=== PATIENT | male | born 1960 | race Caucasian/White ===

== ENCOUNTER 2021-10-01 08:30 | Day surgery (SDC) | payer OTHER, SELFPAY ==
[2021-10-01] VITALS (8 sets, daily range): BP systolic 124–181; BP diastolic 79–100; PULSE 51–70; RESP 16; TEMP 36–36.3; O2SAT 96–100; BMI 48.6
[2021-10-01] MEDS: Lactated Ringers 1,000 ML 15 ML IV (09:35)
--- NOTE | 2021-10-01 10:10 | RAD_ITS ---
INDICATION: CAUDAL EPIDURAL INJECTION EXAMINATION/TECHNIQUE: X-RAY - IR Fluoro Guide Injection Spine COMPARISON: None. FLUOROSCOPY TIME: 9.7 seconds. FLUOROSCOPY DOSE: 13.77 mGy FINDINGS: 2 spot fluoroscopic images were obtained intraoperatively. Images demonstrate needle placement for cortical epidural injection. No radiologist was present for the procedure, please refer to operative report for details. RAD/Fluor Guidance for Spine Inj IMPRESSION: Please refer to operative report for details. Electronically Signed: Jim Suarez MD at 14:21 EDT ,
[2021-10-01] MEDS: Lidocaine 1% (2ml-nursery) 2 ML VIAL (10:14)
[2021-10-01] MEDS: MethylPREDNISolone Acetate 80 MG/ML Vial (10:15)
[2021-10-01] MEDS: 0.9% Normal Saline (Pres. free 10 ML Vial (10:15)
[2021-10-01] MEDS: Bupivacaine 0.25% 30 ML Vial (10:15)
--- NOTE | 2021-10-01 12:16 | OP.PCM_ITS ---
Report of Operation Date of Procedure: 10/01/21 Pre-Operative Diagnosis: Lumbosacral radiculopathy, lumbosacral degenerative di sc disease, lumbosacral spinal stenosis Post-Operative Diagnosis: Lumbosacral radiculopathy, lumbosacral degenerative disc disease, lumbosacral spinal stenosis Surgery/Procedure Performed:: Caudal epidural steroid injection under fluoroscopic guidance Type of Anesthesia: MAC Estimated Blood Loss (mL): Minimal Description of Procedure: DESCRIPTION OF PROCEDURE: History and physical of today was reviewed. Risks and benefits of the procedure were explained. The patient understood and agreed to proceed. Informed consent was obtained. IV inserted per routine protocol. The patient was taken to the operating room and placed in the prone position with a pillow positioned underneath the abdomen. The lower back and tailbone area was prepped and draped in a sterile fashion using iodine x3. Under fluoroscopy guidance on a lateral view, the caudal space was identified. The skin and subcutaneous tissue was anesthetized with approximately 3 mL of 1% lidocaine using a 25-gauge regular needle. Under direct visualization with fluoroscopy, using a 22-gauge 3-1/2-inch spinal needle, the needle was advanced via the skin through the sacral hiatus. The tip of the needle was passed through the sacrococcygeal ligament and advanced to approximately S4 area. After negative aspiration of blood or CSF, a total of 3 mL of contrast was injected to confirm correct placement of the needle as well as cephalad spread. The spread was followed to approximately L5 area. After confirmation on AP as well as lateral view and repeated negative aspiration, a total of 15 mL of preservative-free 0.125% Marcaine with 80 mg of Depo-Medrol was injected easily. The needle was then removed intact. The patient experienced no sign or symptoms of intrathecal or intravascular injection. The patient experienced no paresthesia. The procedure was completed without any apparent difficulty or any complications. The patient appeared to tolerate it well. ASSESSMENT AND PLAN: This is a 60-year-old male with lumbosacral radiculopathy, lumbosacral degenerative disc disease, lumbosacral spinal stenosis status post caudal epidural steroid injection, patient will continue his current medications, patient will follow in approximately 2 weeks for reevaluation. Complications None
== END 2021-10-01 11:27 | disposition home or self-care (01) ==
LOC: SDC 08:49 → AC 09:01
PROVIDERS: Referring Provider Anesthesiology Pain Medicine; Visit Provider Anesthesiology Pain Medicine
PROC: 3E0S3BZ Introduction of Anesthetic Agent into Epidural Space, Percutaneous Approach (ICD-10-PCS; CPT 62282; principal; 2021-10-01 10:05)
DX: M51.17 Intervertebral disc disorders with radiculopathy, lumbosacral region (principal); M48.07 Spinal stenosis, lumbosacral region; I10 Essential (primary) hypertension; Z79.899 Other long term (current) drug therapy; M10.9 Gout, unspecified
CPT/HCPCS: 62323; 64483; 77003; J7120; J3490

== ENCOUNTER 2022-03-18 09:26 | Day surgery (SDC) | payer OTHER, SELFPAY ==
[2022-03-18] MEDS: Lactated Ringers 1,000 ML 15 ML IV (10:05)
[2022-03-18 10:17] VITALS: BP 162/97; PULSE 75; RESP 16; TEMP 36.6; O2SAT 97; BMI 48.9
[2022-03-18 10:19] LABS: Erythrocyte Sedimentation Rate 25 mm/hr (0-20)
--- NOTE | 2022-03-18 10:25 | RAD_ITS ---
PROCEDURE: Caudal epidural. DATE OF EXAMINATION: 03/18/2022. INDICATION: Male, 61 years old. Chronic low back pain. FLUOROSCOPY TIME (if supplied): (10 seconds) minutes/seconds. 2 images were submitted. RAD/Fluor Guidance for Spine Inj IMPRESSION: Intraoperative imaging provided for caudal epidural. Electronically Signed: Gurjit Alas MD at 9:36 EDT ,
[2022-03-18 10:49] LABS: Rheumatoid Factor < 10.0 IU/mL (<15)
[2022-03-18] MEDS: 0.9% Normal Saline (Pres. free 10 ML Vial (11:14)
[2022-03-18] MEDS: Lidocaine 1% (30 ml sdv) 30 ML Vial (11:14)
[2022-03-18] MEDS: MethylPREDNISolone Acetate 40 MG/ML Vial IM ×2 (11:14)
--- NOTE | 2022-03-18 11:19 | OP.PCM_ITS ---
Report of Operation Date of Procedure: 03/18/22 Pre-Operative Diagnosis: Lumbosacral radiculopathy, lumbosacral degenerative di sc disease, lumbosacral spinal stenosis Post-Operative Diagnosis: Lumbosacral radiculopathy, lumbosacral degenerative disc disease, lumbosacral spinal stenosis Surgery/Procedure Performed:: Caudal epidural steroid injection under fluoroscopic guidance Type of Anesthesia: MAC Estimated Blood Loss (mL): Minimal Description of Procedure: DESCRIPTION OF PROCEDURE: History and physical of today was reviewed. Risks and benefits of the procedure were explained. The patient understood and agreed to proceed. Informed consent was obtained. IV inserted per routine protocol. The patient was taken to the operating room and placed in the prone position with a pillow positioned underneath the abdomen. The lower back and tailbone area was prepped and draped in a sterile fashion using iodine x3. Under fluoroscopy guidance on a lateral view, the caudal space was identified. The skin and subcutaneous tissue was anesthetized with approximately 3 mL of 1% lidocaine using a 25-gauge regular needle. Under direct visualization with fluoroscopy, using a 22-gauge 3-1/2-inch spinal needle, the needle was advanced via the skin through the sacral hiatus. The tip of the needle was passed through the sacrococcygeal ligament and advanced to approximately S4 area. After negative aspiration of blood or CSF, a total of 3 mL of contrast was injected to confirm correct placement of the needle as well as cephalad spread. The spread was followed to approximately L5 area. After confirmation on AP as well as lateral view and repeated negative aspiration, a total of 15 mL of preservative-free 0.125% Marcaine with 80 mg of Depo-Medrol was injected easily. The needle was then removed intact. The patient experienced no sign or symptoms of intrathecal or intravascular injection. The patient experienced no paresthesia. The procedure was completed without any apparent difficulty or any complications. The patient appeared to tolerate it well. ASSESSMENT AND PLAN: This is a 61-year-old male with lumbosacral radiculopathy, lumbosacral degenerative disc disease, lumbosacral spinal stenosis status post caudal epidural steroid injection, patient will continue his current medications, patient will follow in approximately 2 weeks for reevaluation. Complications None
[2022-03-18 11:22] VITALS: BP 127/102; BP 162/97; PULSE 92; RESP 16; TEMP 36.2; O2SAT 92
[2022-03-18 11:25] VITALS: BP 148/136; BP 162/97; PULSE 76; RESP 16; O2SAT 97
[2022-03-18 11:31] VITALS: BP 112/65; BP 162/97; PULSE 77; RESP 16; O2SAT 94
[2022-03-18 11:35] VITALS: BP 118/80; BP 162/97; PULSE 74; RESP 16; TEMP 36.3; O2SAT 94
[2022-03-18 12:30] VITALS: BP 162/97
[2022-03-21 13:25] LABS: ANTINUCLEAR ANTIBODIES DIRECT Negative (Negative)
== END 2022-03-18 12:30 | disposition home or self-care (01) ==
LOC: SDC 09:33 → AC 09:35
PROVIDERS: Referring Provider Anesthesiology Pain Medicine; Visit Provider Anesthesiology Pain Medicine
PROC: 3E0S3BZ Introduction of Anesthetic Agent into Epidural Space, Percutaneous Approach (ICD-10-PCS; CPT 62282; principal; 2022-03-18 11:20)
DX: M51.17 Intervertebral disc disorders with radiculopathy, lumbosacral region (principal); M46.96 Unspecified inflammatory spondylopathy, lumbar region; M48.07 Spinal stenosis, lumbosacral region; I10 Essential (primary) hypertension; Z79.899 Other long term (current) drug therapy; H91.90 Unspecified hearing loss, unspecified ear; M10.9 Gout, unspecified
CPT/HCPCS: 62323; 01992; 36415; 64483; 77003; 85652; 86038; 86140; 86431; J7120; J3490

== ENCOUNTER 2022-07-22 11:29 | Day surgery (SDC) | payer OTHER, SELFPAY ==
[2022-07-22] VITALS (7 sets, daily range): BP systolic 122–135; BP diastolic 89–101; PULSE 78–94; RESP 15–18; TEMP 36.2–36.6; O2SAT 94–97; BMI 48.4
[2022-07-22] MEDS: Lactated Ringers 1,000 ML 15 ML IV (11:55)
--- NOTE | 2022-07-22 14:11 | RAD_ITS ---
PROCEDURE: Left L3-L5 transforaminal steroid injection. DATE OF EXAMINATION: 07/22/2022. INDICATION: Male, 61 years old. Chronic low back pain. FLUOROSCOPY TIME (if supplied): (28 seconds) minutes/seconds. 5 images were submitted. Performed to confirm the patient''s identity, the type of procedure, to be performed and the site of entry. RAD/Lumbar Spine 2 or 3 Views IMPRESSION: Intraoperative imaging provided for left L3-L5 transforaminal steroid injection. Electronically Signed: Gurjit Alas MD at 15:50 EST ,
[2022-07-22] MEDS: MethylPREDNISolone Acetate 80 MG/ML Vial (14:17)
[2022-07-22] MEDS: Lidocaine 1% (5 ml sdv) 5 ML Vial (14:17)
--- NOTE | 2022-07-22 14:45 | OP.PCM_ITS ---
Report of Operation Date of Procedure: 07/22/22 Description of Surgical Findings:: PREOPERATIVE DIAGNOSES: 1. Lumbosacral radiculopathy. 2. Lumbosacral degenerative disk disease. 3. Lumbosacral spinal stenosis. POSTOPERATIVE DIAGNOSES: 1. Lumbosacral radiculopathy. 2. Lumbosacral degenerative disk disease. 3. Lumbosacral spinal stenosis. PROCEDURE PERFORMED: Left sided lumbar transforaminal epidural steroid injection, L3-4 and L4-5. ANESTHESIA: MAC. BLOOD LOSS: Minimal. COMPLICATIONS: None. DESCRIPTION OF PROCEDURE: History and physical of today was reviewed. Risks and benefits of the procedure were explained. The patient understood and agreed to proceed. Informed consent was obtained. IV inserted per routine protocol. The patient was taken to the operating room and placed in the prone position with a pillow positioned underneath the abdomen. The left side of his lower back was prepped and draped in a sterile fashion using iodine x3. Under fluoroscopy guidance on oblique view, the L3 through L5 vertebral bodies were visualized. The skin and subcutaneous tissue was anesthetized with approximately 5 mL of 1% lidocaine using a 25-gauge regular needle. Under dire ct visualization with fluoroscopy at approximately 35-degree angle, starting on the left L3, ending on the left L5, using a 22-gauge 5-inch spinal needle, the needle was advanced via the skin. The tip of the needle was maneuvered and directed towards the inferior and medial gutter of the transverse process at the superiormost aspect of the neural foramen. Once the tip of the needle was at the vicinity of the foramen, after negative aspiration for blood or CSF, a total of 1 mL of contrast was injected in divided doses between both levels to confirm correct placement of the needle as well as medial spread. The confirmation was obtained on AP as well as lateral view. After repeated negative aspiration and confirmation on AP as well as lateral view, a total of 6 mL of preservative-free 0.25% Marcaine with 80 mg of Depo-Medrol was injected in divided doses between both levels. The needles were then removed intact. The patient experienced no sign or symptoms of intrathecal or intravascular injection. The patient experienced no paresthesia. The procedure was completed without any apparent difficulty or any complications. The patient appeared to tolerate it well. ASSESSMENT AND PLAN: This is a 61-year-old male with lumbosacral radiculopathy, lumbosacral degenerative disk disease, and lumbosacral spinal stenosis, status post left-sided lumbar transforaminal epidural steroid injection at L3-4 and L4- 5. The patient will continue his current medications. The patient will follow up in approximately 2 weeks for possible repeat of procedure if indicated.
== END 2022-07-22 15:06 | disposition home or self-care (01) ==
LOC: SDC 11:36 → AC 11:37
PROVIDERS: Referring Provider Anesthesiology Pain Medicine; Visit Provider Anesthesiology Pain Medicine
PROC: 3E0S3BZ Introduction of Anesthetic Agent into Epidural Space, Percutaneous Approach (ICD-10-PCS; CPT 64484; principal; 2022-07-22 13:05)
DX: M51.17 Intervertebral disc disorders with radiculopathy, lumbosacral region (principal); M48.07 Spinal stenosis, lumbosacral region; I10 Essential (primary) hypertension; M19.90 Unspecified osteoarthritis, unspecified site; Z79.899 Other long term (current) drug therapy
CPT/HCPCS: 64484; 01992; 64483; 72100; J7120